=== PATIENT | male | born 1970 | race Caucasian/White ===

== ENCOUNTER → 2017-05-31 | Outpatient (CLI) | payer BC ==
[~2017-05-31] MED LIST: BACL-19 PO; GABA300C10 PO; GADOBUTROL 10 MMOL/10 ML PFS ONE; OM3/1CAP3 PO; OMEP20TA62 PO
== END | disposition home or self-care (01) ==
LOC: RAD 13:03
PROVIDERS: ATTEND Registered Nurse
DX: G35 Multiple sclerosis (principal)
CPT/HCPCS: 70553; 72156; 72157; A9585

== ENCOUNTER → 2017-12-18 | Outpatient (CLI) | payer BC ==
[~2017-12-18] MED LIST changes: +CITA20TA9 PO; +LEVO50TA5 PO; +LYSI100010 PO; +RIVA20TA PO
== END | disposition home or self-care (01) ==
LOC: CFH 07:37
PROVIDERS: ATTEND Registered Nurse
DX: G35 Multiple sclerosis (principal)
CPT/HCPCS: 70553; A9585